=== PATIENT | female | born 1975 | race Caucasian/White ===

== ENCOUNTER 2022-02-17 15:04 | Outpatient (CLI) | payer OTHER, SELFPAY ==
--- NOTE | ~2022-02-17 | XR_ITS ---
EXAMINATION: XR chest 2V 02/17/2022 14:51 INDICATION: Nicotine dependence. PROCEDURE: 2 view chest COMPARISON: No prior studies for comparison. FINDINGS: The lungs are clear. The cardiomediastinal silhouette is within normal limits. There are no pleural effusions. There is no pneumothorax suspected. IMPRESSION: 1: NO ACUTE CARDIOPULMONARY DISEASE. Reviewed, dictated and finalized at location A.
[2022-02-17 15:21] LABS: Hematocrit 42.8 % (37.0-47.0); Hemoglobin 15.5 g/dL (12.0-15.0); Mean Corpuscular HGB Conc 36.2 g/dl (32-36); Mean Corpuscular Hemoglobin 30.3 pg (26-34); Mean Corpuscular Volume 83.8 fl (80-100); Mean Platelet Volume 10.3 fl (7.4-10.4); Platelet Count Result 283 k/mm3 (150-375); Red Blood Count 5.11 M/mm3 (4.2-5.4); Red Cell Distribution Width 12.5 % (11.5-14.5); White Blood Count 7.8 K/mm3 (4.5-10.0)
[2022-02-17 15:36] LABS: Alanine Aminotransferase 23 U/L (6-35); Albumin Level 4.7 g/dL (3.5-5.1); Alkaline Phosphatase 49 U/L (38-126); Anion Gap 10 mmol/L (8-16); Aspartate Amino Transferase 24 U/L (14-36); Bilirubin,Total 0.8 mg/dL (0.2-1.3); Blood Urea Nitrogen 6 mg/dL (7-17); Calcium 9.1 mg/dL (8.4-10.2); Carbon Dioxide 25 mmol/L (22-30); Chloride 104 mmol/L (98-107); Cholesterol 257 mg/dL (0-200); Estimated Glomerular Filt Rate > 60; Glucose 74 mg/dL (65-110); HDL Direct 55 mg/dL; Potassium 3.6 mmol/L (3.4-5.0); Sodium 139 mmol/L (137-145); Triglycerides 153 mg/dL (<150)
[2022-02-17 15:47] LABS: LDL Cholesterol Direct 155 mg/dL
[2022-02-17 16:05] LABS: Thyroid Stimulating Hormone 0.484 uIU/mL (0.465-4.680)
[2022-02-17 17:48] LABS: Vitamin D 25 Hydroxy 30.7 ng/mL
== END 2022-02-17 15:05 | disposition home or self-care (01) ==
PROVIDERS: PCP Family Medicine; Visit Provider Nurse Practitioner Family
DX: F17.200 Nicotine dependence, unspecified, uncomplicated (principal); E78.2 Mixed hyperlipidemia; I10 Essential (primary) hypertension; Z13.29 Encounter for screening for other suspected endocrine disorder; E55.9 Vitamin D deficiency, unspecified; E53.8 Deficiency of other specified B group vitamins
CPT/HCPCS: 36415; 71046; 80053; 80061; 82306; 82607; 84443; 85027

== ENCOUNTER 2022-02-18 15:51 | Outpatient (CLI) | payer OTHER, SELFPAY ==
[2022-02-18 17:12] LABS: D Dimer < 0.27 ug/mL (<0.48)
== END 2022-02-18 15:52 | disposition home or self-care (01) ==
PROVIDERS: PCP Family Medicine; Visit Provider Nurse Practitioner Family
DX: R06.02 Shortness of breath (principal)
CPT/HCPCS: 36415; 85380

== ENCOUNTER 2022-02-26 16:38 | Outpatient (CLI) | payer OTHER, SELFPAY ==
--- NOTE | ~2022-02-26 | MR_ITS ---
EXAMINATION: MR brain/brain stem wo con DATE: 02/26/2022 17:19 INDICATION: Migraine headache. Dizziness. Confusion. TECHNIQUE: Magnetic resonance imaging (MRI) of the brain and brainstem was performed without intraven ous contrast. COMPARISON: None. FINDINGS: There is no intracranial hemorrhage, acute infarction, or abnormal intracranial mass lesion . There are scattered areas of nonspecific increased T2-weighted signal intensity in the cerebral whi te matter. There is no intracranial hemorrhage, acute infarction, or abnormal intracranial mass lesio n. The ventricles are normal in size. There are bilateral mastoid effusions. There is mucosal thicken ing in the paranasal sinuses. The orbits are normal. IMPRESSION: 1. Mild nonspecific cerebral white matter disease, which likely represents chronic small vessel ische magdalena disease. Reviewed, dictated and finalized at location A. IMPRESSION: 1. 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
== END 2022-02-26 16:39 | disposition home or self-care (01) ==
PROVIDERS: PCP Family Medicine; Visit Provider Nurse Practitioner Family
DX: G43.001 Migraine without aura, not intractable, with status migrainosus (principal); R42 Dizziness and giddiness; R53.1 Weakness; R93.0 Abnormal findings on diagnostic imaging of skull and head, not elsewhere classified
CPT/HCPCS: 70551

== ENCOUNTER 2023-02-11 12:23 | Outpatient (CLI) | payer OTHER, SELFPAY ==
--- NOTE | ~2023-02-11 | XR_ITS ---
XR abdomen/kub 1V 02/11/2023 12:51 Indication: High-pitched bowel sounds Procedure: KUB Comparison: No prior studies for comparison. Findings: Moderate colonic fecal loading. Nonobstructive bowel pattern. There is a right renal stone measuring 2 mm. There is a left pelvic phlebolith. No acute osseous abnormality. Impression: 1: Right nephrolithiasis. Reviewed, dictated and finalized at location L. Impression: 1: Right nephrolithiasis.
--- NOTE | ~2023-02-11 | XR_ITS ---
EXAMINATION:XR_CERV2-3V_CR DATE: 02/11/2023 12:51 INDICATION: Neck pain TECHNIQUE: AP, lateral, lateral swimmers and odontoid views of the cervical spine are provided. COMPARISON: None FINDINGS: There are 2 mm of retrolisthesis of C5 on C6. There appears to be discontinuity of the odon toid process. The vertebral body heights are maintained. There is moderate loss of intervertebral dis c space height at C5-6 and C6-7. There is moderate to severe facet joint osteoarthritis at C5-6. Ther e is moderate uncovertebral joint osteoarthritis at C5-6. Prevertebral soft tissues are normal. IMPRESSION: 1. Possible discontinuity of the odontoid process which may be congenital or relate to prior injury. Consider further evaluation with CT or MRI. 2. Mild to moderate cervical spondylosis elsewhere. Reviewed, dictated and finalized at location F. IMPRESSION: 1. Possible discontinuity of the odontoid process which may be congenital or re late to prior injury. Consider further evaluation with CT or MRI. 2. Mild to moderate cervical spondylosis elsewhere.
== END 2023-02-11 12:24 | disposition home or self-care (01) ==
PROVIDERS: PCP Family Medicine; Visit Provider Nurse Practitioner
DX: M43.02 Spondylolysis, cervical region (principal); N20.0 Calculus of kidney; R20.0 Anesthesia of skin; R63.4 Abnormal weight loss; K59.09 Other constipation; R19.8 Other specified symptoms and signs involving the digestive system and abdomen; R14.0 Abdominal distension (gaseous); R19.5 Other fecal abnormalities
CPT/HCPCS: 72040; 74018

== ENCOUNTER 2023-02-23 09:18 | Outpatient (CLI) | payer OTHER, SELFPAY ==
--- NOTE | 2023-02-23 11:30 | NEURO_ITS ---
Impression: # Complains of pain and discomfort in hands. # Mild left Carpal Tunnel Syndrome. # Left ulnar neuropathy across the elbow. # Normal Needle/EMG exam. Nerve Conduction Studies Anti Sensory Summary Table Stim Site NR Peak (ms) P-T Amp (?V) Site1 Site2 Delta-P (ms) Dist (cm) Jensen (m/s) Left Median Anti Sensory (2-3nd Digit) Wrist 4.2 53.2 Wrist 2-3nd Digit 4.2 14.0 33 Wrist 4.4 54.6 Wrist 2-3nd Digit 4.2 14.0 33 Right Median Anti Sensory (2-3nd Digit) Wrist 3.5 71.9 Wrist 2-3nd Digit 3.5 14.0 40 Wrist 3.4 65.6 Wrist 2-3nd Digit 3.5 14.0 40 Left Radial Anti Sensory (Base 1st Digit) Wrist 1.6 36.3 Wrist Base 1st Digit 1.6 0.0 Right Radial Anti Sensory (Base 1st Digit) Wrist 2.1 22.6 Wrist Base 1st Digit 2.1 0.0 Left Ulnar Anti Sensory (5th Digit) Wrist 2.8 88.3 Wrist 5th Digit 2.8 14.0 50 Right Ulnar Anti Sensory (5th Digit) Wrist 2.8 43.6 Wrist 5th Digit 2.8 14.0 50 Motor Summary Table Stim Site NR Onset (ms) O-P Amp (mV) Site1 Site2 Delta-0 (ms) Dist (cm) Jensen (m/s) Left Median Motor (Abd Poll Brev) Wrist 4.3 3.0 Elbow Wrist 4.8 27.0 56 Elbow 9.1 3.3 Right Median Motor (Abd Poll Brev) Wrist 3.2 7.7 Elbow Wrist 5.2 29.0 56 Elbow 8.4 6.4 Left Ulnar Motor (Abd Dig Minimi) Wrist 3.0 5.3 A Elbow Wrist 5.5 26.0 47 A Elbow 8.5 5.0 B Elbow Wrist 3.7 21.0 57 B Elbow 6.7 4.5 Right Ulnar Motor (Abd Dig Minimi) Wrist 2.6 5.0 A Elbow Wrist 4.7 27.0 57 A Elbow 7.3 4.2 F Wave Studies NR F-Lat (ms) L-R F-Lat (ms) Left Median (Mrkrs) (Abd Poll Brev) 29.26 1.83 Right Median (Mrkrs) (Abd Poll Brev) 27.43 1.83 Left Ulnar (Mrkrs) (Abd Dig Min) 27.54 0.00 Right Ulnar (Mrkrs) (Abd Dig Min) 27.54 0.00 EMG Side Muscle Nerve Root Ins Act Fibs Amp Dur Recrt Comment Right 1stDorInt Ulnar C8-T1 Nml Nml Nml Nml Nml Right Ext Indicis Radial (Post Int) C7-8 Nml Nml Nml Nml Nml Right Ext Digitorum Radial (Post Int) C7-8 Nml Nml Nml Nml Nml Right BrachioRad Radial C5-6 Nml Nml Nml Nml Nml Right PronatorTeres Median C6-7 Nml Nml Nml Nml Nml Right Abd Poll Brev Median C8-T1 Nml Nml Nml Nml Nml Left 1stDorInt Ulnar C8-T1 Nml Nml Nml Nml Nml Left Ext Indicis Radial (Post Int) C7-8 Nml Nml Nml Nml Nml Left Ext Digitorum Radial (Post Int) C7-8 Nml Nml Nml Nml Nml Left BrachioRad Radial C5-6 Nml Nml Nml Nml Nml Left PronatorTeres Median C6-7 Nml Nml Nml Nml Nml Left Abd Poll Brev Median C8-T1 Nml Nml Nml Nml Nml MTDD
== END 2023-02-23 09:19 | disposition home or self-care (01) ==
PROVIDERS: PCP Family Medicine; Visit Provider Physician Assistant Medical
DX: R20.0 Anesthesia of skin (principal); G56.02 Carpal tunnel syndrome, left upper limb; G56.22 Lesion of ulnar nerve, left upper limb
CPT/HCPCS: 95886; 95911

== ENCOUNTER 2023-03-08 05:49 | Day surgery (SDC) | payer OTHER, SELFPAY ==
[2023-02-12 11:33] VITALS: BMI 25.3
[2023-03-08 06:55] VITALS: BP 148/96; PULSE 65; RESP 20; TEMP 36.9; O2SAT 99
--- NOTE | 2023-03-08 07:38 | WPDANESEPPF ---
Anes - Initial Pre Proc Eval Procedure: Operation Date: 03/08/23 08:00 Proposed Procedures p Diagnostic Colonoscopy - Harperet Monreal MD Date/Time: 03/08/23 07:38 Surgeon: Harpreet Monreal MD Pre Op Diagnosis: Abnormal Weight Loss, ABD Distension, Constipation Patient Data Age: 48 Gender: F Height: 1.68 m Weight: 71.4 kg Allergies Allergy/AdvReac Type Severity Reaction Status Date / Time nitrofurantoin AdvReac Severe Numbness Verified 03/08/23 06:55 Home Medications Medication Instructions Recorded Confirmed Type rimegepant 75 mg disintegrating 75 mg PO DAILY PRN migraine 07/18/22 03/08/23 Rx tablet (Nurtec ODT) headache #10 tabs alprazolam 1 mg tablet (Xanax) 1 mg PO TID PRN anxiety #60 tabs 08/31/22 03/08/23 Rx paroxetine HCl 40 mg tablet 40 mg PO DAILY #30 tabs 03/03/23 03/08/23 Rx Patient hx anesthesia problems: none Family hx anesthesia problems: none Results Review: All pre-operative results and documents have been reviewed as part of the pre-operative evaluation. [facility] Past Medical History Medical History Abnormal weight loss Bloating Chronic constipation External hemorrhoids High-pitched bowel sounds Hx: UTI (urinary tract infection) Screening for malignant neoplasm of breast Screening for thyroid disorder Surgical History Surgical History (Updated 03/08/23 @ 07:39 by Sarthak Marie MD) History of endometrial ablation History of tubal ligation Family History Family History Father Family history of kidney disease Family history of malignant neoplasm of urinary bladder Grandparent Family history of malignant neoplasm of cervix Family history of malignant neoplasm of ovary Heart disease Mother Family history of malignant neoplasm of cervix Family history of lung cancer Other Family history of malignant neoplasm of breast Hypertension Social History Social History Years smoked: 8 Smoking status: Current every day smoker Tobacco type: e-cigarettes/vaping Second hand tobacco smoke exposure: No Alcohol intake: current Alcohol use details: 3-12 drinks per week Substance use: current Substance use type: marijuana Other substance usage details: daily, vape Lack of Transportation: No Lack of Food: Never True Current Housing: I Have Housing Concerned About Future Housing: No Difficulty Paying Gas/Electric Bills: No Difficulty Paying for Meds: No Currently Unemployed: No Education: Associate Degree Difficulty w/ Childcare or Family Care: No Living arrangements: with family Occupation/Education: occupation 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 [employer] Gender identity (if verbalized by the patient): Female Sexual Orientation (if Verbalized by the Patient): Straight or Heterosexual Spiritual care concerns: No Agree to blood products: Yes Anes - Eval Final PreProcedure Day of Procedure 03/08/23 07:38 Patient weight: normal Heart: regular rate and rhythm Lungs: clear to auscultation Airway: Mallampati scale class II Neurological: alert and oriented Last oral intake: >/= 8 hours ASA classification: II Emergent: no Anesthetic plan: proceed Anesthesia type and monitoring: general GIVS and standard monitoring Results Review: All pre-operative results and documents have been reviewed as part of the pre-operative evaluation. Informed Consent: The patient's anesthetic plan and its attendant risks and benefits were discussed with the patient/family/POA. Questions were solicited and answers provided to the satisfaction of the patient/family/POA.
[2023-03-08] MEDS: LACTATED RINGERS 1,000 ML 150 ML IV CONT (07:47)
--- NOTE | 2023-03-08 08:06 | WPDHPUPDATE1 ---
History and Physical Update Update Date/Time: 03/08/23 08:06 History and Physical has been reviewed, including an updated exam of the patient. There are NO changes in the patient's condition. Risks, benefits, and alternatives have been discussed and questions answered. Patient agrees to proceed with procedure.
[2023-03-08 08:25] VITALS: BP 98/75; PULSE 58; RESP 16; O2SAT 98
[2023-03-08 08:35] VITALS: BP 93/48; PULSE 56; RESP 16; O2SAT 99
[2023-03-08 08:45] VITALS: BP 109/75; PULSE 51; RESP 20; O2SAT 99
--- NOTE | 2023-03-08 08:47 | WPDANESPN ---
Anes - Prog Note Post-Op Date/Time: 03/08/23 08:47 Cardiovascular status: normal Respiratory status: normal Airway patency: baseline Mental status: baseline Post-Op hydration status: normal Vital Signs: Last Vital Signs Temp 36.9 C 03/08/23 06:55 Pulse 56 L 03/08/23 08:35 Resp 16 03/08/23 08:35 BP 93/48 L 03/08/23 08:35 Pulse Ox 99 03/08/23 08:35 O2 Del Method Room Air 03/08/23 08:35 Pain Score (VAS): 0/10 I/O: Intake & Output 03/07/23 03/08/23 03/08/23 23:59 07:59 15:59 Intake Total 900 Balance 900 Patient Feedback: Patient satisfied with anesthetic care.
== END 2023-03-08 08:58 | disposition home or self-care (01) ==
PROVIDERS: PCP Family Medicine; Visit Provider Internal Medicine Gastroenterology
PROC: 0DJD8ZZ Inspection of Lower Intestinal Tract, Via Natural or Artificial Opening Endoscopic (ICD-10-PCS; CPT 45378; principal; 2023-03-08 08:00)
DX: K62.1 Rectal polyp (principal); K64.8 Other hemorrhoids
CPT/HCPCS: 45380

== ENCOUNTER 2023-03-08 07:00 | Outpatient (NON) | payer OTHER, SELFPAY | END 2023-03-08 07:01 | disposition home or self-care (01) | PROVIDERS: PCP Family Medicine; Visit Provider Internal Medicine Gastroenterology | DX: Z12.11 Encounter for screening for malignant neoplasm of colon (principal) | CPT/HCPCS: 88305 ==

== ENCOUNTER 2023-03-15 06:37 | Outpatient (CLI) | payer OTHER, SELFPAY ==
--- NOTE | ~2023-03-15 | MR_ITS ---
EXAMINATION: MR cervical spine wo con DATE: 03/15/2023 07:18 INDICATION: Anesthesia of skin. TECHNIQUE: Magnetic resonance imaging (MRI) of the cervical spine was performed without intravenous c ontrast. Sequences included sagittal T2-weighted FSE, sagittal T2-weighted FS FSE, sagittal T1-weight ed FSE, axial MERGE, and axial T2-weighted FSE. COMPARISON: Cervical spine radiographs 02/11/2023 FINDINGS: There is 3 degrees levocurvature of cervicothoracic spine. There is 2 mm retrolisthesis of C5 and C6. There is an old oblique fracture of the dens with nonunion. The inferior fracture fragment demonstrates 3 mm anterior displacement. There is moderately decreased disc height at C5-C6 and C6-C 7. The spinal cord signal intensity is normal. The following disc levels are specifically discussed: C2-C3: There is a central protrusion. There is no uncovertebral joint osteoarthritis. There is mild b ilateral facet joint osteoarthritis. There is mild left neural foraminal stenosis. There is no centra l canal stenosis. C3-C4: There is a central extrusion. There is mild bilateral uncovertebral joint osteoarthritis. Ther e is moderate right and mild left facet joint osteoarthritis. There is mild bilateral neural foramina l stenosis. There is mild central canal stenosis. C4-C5: The disc does not extend beyond the endplate margin. There is moderate right and mild left unc overtebral joint osteoarthritis. There is severe bilateral facet joint osteoarthritis. There is mild bilateral neural foraminal stenosis. There is no central canal stenosis. C5-C6: The disc is bulging. There is severe bilateral uncovertebral joint osteoarthritis. There is mi ld bilateral facet joint osteoarthritis. There is moderate bilateral neural foraminal stenosis. There is mild central canal stenosis. C6-C7: The disc is bulging. There is severe right and moderate left uncovertebral joint osteoarthriti s. There is moderate bilateral facet joint osteoarthritis. There is moderate right and mild left neur al foraminal stenosis. There is mild central canal stenosis. C7-T1: The disc does not extend beyond the endplate margin. There is no uncovertebral joint osteoarth ritis. There is severe bilateral facet joint osteoarthritis. There is mild bilateral neural foraminal stenosis. There is no central canal stenosis. IMPRESSION: 1. Moderate cervical spondylosis. 2. 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 Reviewed, dictated and finalized at location E.
== END 2023-03-15 06:38 | disposition home or self-care (01) ==
PROVIDERS: PCP Family Medicine; Visit Provider Physician Assistant Medical
DX: M50.30 Other cervical disc degeneration, unspecified cervical region (principal); R20.0 Anesthesia of skin; R93.7 Abnormal findings on diagnostic imaging of other parts of musculoskeletal system; M47.892 Other spondylosis, cervical region
CPT/HCPCS: 72141